=== PATIENT | female | born 1940 | race Caucasian/White ===

== ENCOUNTER 2016-10-19 11:00 | Observation (INO) | payer OTHER ==
[~2016-10-19] VITALS: Ht 165.1 cm; Wt 83.0 kg
[~2016-10-19 11:00] MED LIST: ASPIR-LOW81 MG PO; BENTYL20 MG PO; Bentyl PO; CALCITRATE200 MG PO; Citracal PO; Colace PO; DIOVAN HCT 31 TABLE1 PO; Diovan HCT 320/25 PO; Feosol PO; KENALOG,ARISTOC15 G2 TP; KETOPROFEN200 MG PO; MULTIVITAMINS1 EA11 PO; PREMARIN VAGI42.5 GM VG; PROBIOTIC1 EACH PO; Percocet 5/325,Endoc PO; STOOL SOFTENER100 MG PO; Senokot S,Pericolace PO; THERAGRAN1 TABLET PO; VESICARE5 MG PO; Vicodin,Norco 5/325 PO; Xarelto PO; ZOCOR20 MG PO; Zocor PO
[2016-10-19 11:44] LABS: MCH 31.1 PG (29.0-34.0); MCHC 32.7 G/DL (30.0-36.0); MCV 95.1 FL (83-99); MEAN PLAT.VOLUME 10.2 uM^3 (9.5-12.4); PLATELET COUNT 303 K/uL (156-360); RBC DIS.WIDTH-CV 12.2 % (11.8-14.6); RBC DIS.WIDTH-SD 42.8 % (39-53); RED BLOOD COUNT 4.31 M/uL (3.80-5.20); WHITE BLOOD COUNT 7.9 K/uL (4.1-10.2)
[2016-10-19 11:48] LABS: CHLORIDE 104 mEq/L (99-109); POTASSIUM 4.2 mEq/L (3.7-5.4); SODIUM 140 mEq/L (136-147)
[2016-10-19 11:50] LABS: GLUCOSE 97 mg/dL (70-99)
[2016-10-19 11:52] LABS: ANION GAP 11 MEQ/L (2-14)
[2016-10-19 11:54] LABS: GFR ESTIMATE (CALCULATED) 57 mL/min/
[2016-10-19 11:55] LABS: UREA NITROGEN (BUN) 25 mg/dL (9-23)
[2016-10-19 12:03] LABS: TROP-I INTERPRETATION NEGATIVE; TROPONIN-I < 0.01 ng/mL (0.0-0.30)
[2016-10-19] MEDS ORDERED: CALCIUM 500 MG1 EACH PO (13:36)
[2016-10-19] MEDS ORDERED: ZOCOR10 MG PO (13:38)
[2016-10-19] MEDS ORDERED: MULTI VITAMIN1 EACH PO (13:38)
[2016-10-19] MEDS ORDERED: OXYBUTYNIN CHLO10 MG PO (13:39)
[2016-10-19] MEDS ORDERED: MELOXICAM15 MG PO (13:39)
[2016-10-19] MEDS ORDERED: ARTIFICIAL TEAR15 M1 BOTH EYES (13:41)
[2016-10-19 17:06] VITALS: BP 176/77
[2016-10-19 18:41] LABS: TROP-I INTERPRETATION NEGATIVE; TROPONIN-I 0.02 ng/mL (0.0-0.30)
[2016-10-19 20:17] VITALS: BP 148/70
[2016-10-20 01:02] LABS: TROP-I INTERPRETATION NEGATIVE; TROPONIN-I < 0.01 ng/mL (0.0-0.30)
[2016-10-20 04:28] VITALS: BP 135/64
[2016-10-20 07:54] VITALS: BP 130/58
[2016-10-20] MEDS ORDERED: NITROGLYCERIN0.4 MG SL (11:32)
[2016-10-20 11:39] VITALS: BP 138/63
== END 2016-10-20 12:22 | disposition home or self-care (01) ==
LOC: EME 11:00 → EDOF 13:32 → 5WEST 13:32 → EDOF 13:32 → 5WEST 17:05
PROVIDERS: Internal Medicine
DX: R07.2 Precordial pain (principal); I10 Essential (primary) hypertension; Z79.82 Long term (current) use of aspirin; E78.5 Hyperlipidemia, unspecified; Z90.49 Acquired absence of other specified parts of digestive tract
CPT/HCPCS: 71020; 80048; 84484; 85027; 93005; 93306; 99281; 99285; G0378; J1650